=== PATIENT | female | born 1995 | race Caucasian/White ===

== ENCOUNTER 2022-07-21 03:50 | Emergency (ER) | payer BC ==
[2022-07-21] MEDS ORDERED: Albuterol/Ipratropium 3.0-0.5 MG/3 ML Neb Soln NEB ONE (03:54)
[2022-07-21] MEDS ORDERED: Albuterol 0.083% 2.5 MG/3 ML Neb Soln NEB ONE (04:03)
== END 2022-07-21 04:20 | disposition home or self-care (01) ==
LOC: LL.ED 03:50
DX: J45.909 Unspecified asthma, uncomplicated (principal); Z91.013 Allergy to seafood; Z91.09 Other allergy status, other than to drugs and biological substances
CPT/HCPCS: 94640; 99283; 99284; J7620-GY